=== PATIENT | male | born 1965 | race Caucasian/White ===

== ENCOUNTER 2021-11-26 10:03 | Emergency (ER) | payer MEDICAID, SELFPAY ==
[~2021-11-26] VITALS: Ht 172.7 cm; Wt 93.0 kg
[2021-11-26 10:13] VITALS: BP_SYST 99
[2021-11-26 10:52] LABS: BASOPHILS # (AUTO) 0.1 K/uL (0.0-0.2); BASOPHILS % (AUTO) 0.7 % (0.0-2.0); EOSINOPHILS # (AUTO) 0.1 K/uL (0.0-0.4); EOSINOPHILS % (AUTO) 0.4 % (0.0-4.0); HEMOGLOBIN 9.6 g/dL (14.0-18.0); LYMPHOCYTES # (AUTO) 1.1 K/uL (1.0-5.5); LYMPHOCYTES % (AUTO) 6.2 % (20.5-51.5); MEAN CORPUSCULAR HEMOGLOBIN 31 pg (27-31); MEAN CORPUSCULAR HGB CONC 33 % (32-36); MEAN CORPUSCULAR VOLUME 92 fL (79.0-98.0); MONOCYTES # (AUTO) 1.1 K/uL (0.0-1.0); MONOCYTES % (AUTO) 6.5 % (1.7-9.3); NEUTROPHILS # (AUTO) 14.9 K/uL (1.8-7.7); NEUTROPHILS % (AUTO) 86.2 % (40.0-70.0); PLATELET COUNT (AUTO) 324 K/uL (130-430); RED BLOOD CELL COUNT(AUTO) 3.16 MIL/uL (4.2-6.2); RED CELL DISTRIBUTION WIDTH 17.7 % (9.0-15.0); WHITE BLOOD COUNT (AUTO) 17.3 K/uL (4.8-10.8)
[2021-11-26 11:15] LABS: CALCIUM 7.8 mg/dL (8.4-11.0); CREATININE 0.52 mg/dL (0.55-1.30); INR 1.3 (0.80-1.20); POTASSIUM 4.3 mmol/L (3.5-5.1); PROTHROMBIN TIME 12.9 SECS (9.5-12.5)
[2021-11-26 11:20] LABS: ALBUMIN 1.7 g/dL (3.4-4.8); TOTAL BILIRUBIN 9.4 mg/dL (0.0-1.0)
[2021-11-26] MEDS ORDERED: AMLO5TAB4 PO (11:22)
[2021-11-26] MEDS ORDERED: DOCU-144 PO (11:22)
[2021-11-26] MEDS ORDERED: OMEP20CA15 PO (11:22)
[2021-11-26] MEDS ORDERED: PIPERACILLIN/TAZOBACTAM 3.375 GM/VIAL (ZOSYN) IV ONE (13:08)
[2021-11-26] MEDS ORDERED: PIPERACILLIN/TAZO 3.375 GM in NS 50 ML IV ONE (13:15)
[2021-11-26 15:12] LABS: BILIRUBIN,URINE 3+ (NEGATIVE); BLOOD, URINE NEGATIVE (NEGATIVE); CLARITY/URINE CLEAR (CLEAR); GLUCOSE,URINE TRACE (NEGATIVE); KETONES,URINE TRACE (NEGATIVE); LEUKOCYTE ESTERASE ,URINE NEGATIVE (NEGATIVE); NITRITE, URINE NEGATIVE (NEGATIVE); PH,URINE 5.5 (5.0-8.0); PROTEIN URINE TRACE (NEGATIVE)
[2021-11-26 15:15] LABS: COLOR,URINE YELLOW (YELLOW)
[2021-11-26 15:36] LABS: BACTERIA,URINE None Seen /HPF (None Seen); RBC,URINE 0-3 /HPF (0-3); WBC,URINE 0-3 /HPF (0-3)
[2021-11-27 07:55] VITALS: BP_SYST 97
== END 2021-11-27 07:55 | disposition short-term general hospital (02) ==
LOC: SED 10:03
DX: K83.1 Obstruction of bile duct (principal); D01.7 Carcinoma in situ of other specified digestive organs; D64.9 Anemia, unspecified; R18.8 Other ascites; J90 Pleural effusion, not elsewhere classified; J45.909 Unspecified asthma, uncomplicated; Z98.890 Other specified postprocedural states; Z79.899 Other long term (current) drug therapy; Z20.822 Contact with and (suspected) exposure to COVID-19
CPT/HCPCS: 36415; 71045; 80053; 81000; 82140; 83605; 83690; 83880; 85025; 85610; 85730; 87040; 87426; 93005; 96365; 99285; J2543